=== PATIENT | female | born 1980 | race Caucasian/White ===

== ENCOUNTER 2018-03-30 17:34 | Inpatient (IN) | payer OTHER ==
[2018-03-30 17:50] VITALS: BMI 34.5
[2018-03-30] MEDS: Lactated Ringer's 1,000 ML IV SCH ×3 (18:10→20:30)
[2018-03-30 18:42] LABS: HEMOGLOBIN 11.1 g/dL (12.0-16.0); MEAN CELL VOLUME 90.4 fl (81.0-99.0); MEAN CORPUSCULAR HEMOGLOBIN 30.5 pg (27.0-31.0); MEAN CORPUSCULAR HGB CONC 33.8 g/dL (33.0-37.0); RBC 3.64 Mil/uL (3.80-5.20); RED CELL DISTRIBUTION WIDTH 14.6 % (11.5-14.5); WHITE BLOOD COUNT 10.2 K/uL (4.8-10.8)
[2018-03-30 18:45] LABS: SQUAMOUS EPITHIAL 4 /hpf (0-5); URINE BACTERIA RARE (<OCC); URINE BILIRUBIN NEGATIVE (NEGATIVE); URINE BLOOD NEGATIVE (NEGATIVE); URINE CLARITY SLIGHTY-CLOUDY (Clear); URINE COLOR YELLOW (YELLOW); URINE GLUCOSE (UA) NEG (Normal); URINE LEUKOCYTE ESTERASE NEG Leu/uL (Negative); URINE PROTEIN NEGATIVE (NEGATIVE); URINE UROBILINOGEN 0.2-1.0 mg/dL (0.2-1.0)
[2018-03-30] MEDS: Betamethasone Soluspan 30 mg/5mL Inj Susp IM SCH (18:55)
[2018-03-31] MEDS: Lactated Ringer's 1,000 ML IV SCH (05:00)
--- NOTE | 2018-03-31 08:53 | OBPN ---
Datetime: 03/31/2018 08:45 Gestation - Est Wks by US: 32+weeks IP Progress Note Comment: stable hd1,no complaintstoday,no contraction or leakage of fluid continue present care will repeat elie todayand give second dose of steroid NICHD Decel Fetus A IP Provider: Nikolay
--- NOTE | 2018-03-31 11:19 | US ---
Date of service: 03/31/2018 PROCEDURE: OB Pelvic Ultrasound HISTORY: ABISAI ONLY LMP: Difficult to read. Estimated date of delivery by LMP is offered at 05/24/2018. Estimated gestational age by LMP is 32 weeks 2 days. COMPARISON: The specific request is that of the amniotic fluid index for this exam. According to the patient she had a recent ultrasound a few days ago with the amniotic fluid index was reportedly "Low" . No prior reports or images are now available. FINDINGS: UTERUS: There is a single intrauterine gestation of approximately 32 weeks 2 days with cardiac activity noted at 153 beats per minute. The presentation is cephalic. The placenta is anterior -its relationship to the cervix is not clearly identified. Amniotic fluid index is 11.1 cm. CERVIX: closed. RIGHT OVARY: Not visualized LEFT OVARY: Visualized. FREE FLUID: None. OTHER FINDINGS: None. IMPRESSION: Single intrauterine gestation with normal cardiac activity. Cephalic presentation. Anterior placenta -as above. Approximate gestational age is 32 weeks 2 days. . The exam is limited and was specifically requested to assess for amniotic fluid index. Amniotic fluid index is 11.1 Comments: Study marked for PA review .
[2018-03-31] MEDS: Betamethasone Soluspan 30 mg/5mL Inj Susp IM SCH (18:57)
--- NOTE | 2018-04-01 10:44 | US ---
Date of service: 04/01/2018 PROCEDURE: Limited Ob ultrasound. HISTORY: LMP: 08/17/2017 COMPARISON: 03/31/2018 TECHNIQUE: Transvaginal pelvic ultrasound was performed. FINDINGS: The amniotic fluid index is 13.9 cm. Single live intrauterine fetus in cephalic presentation. Placenta is anterior. IMPRESSION: Amniotic fluid index is within normal limits and measures 13.9 cm.
[2018-04-05 17:38] VITALS: BP 106/59; PULSE 80; RESP 18; TEMP 98.4; O2SAT 96
== END 2018-04-01 12:15 | disposition home or self-care (01) | DRG 382 ==
LOC: H.L&D 17:50
PROVIDERS: ADMIT Specialist; ATTEND Specialist
PROC: 4A1HXCZ Monitoring of Products of Conception, Cardiac Rate, External Approach (ICD-10-PCS; principal; 2018-03-30)
DX: O47.1 False labor at or after 37 completed weeks of gestation (principal); Z3A.32 32 weeks gestation of pregnancy; O09.523 Supervision of elderly multigravida, third trimester

== ENCOUNTER 2018-05-22 14:03 | Inpatient (IN) | payer OTHER ==
[2018-05-22 14:38] VITALS: BMI 35.3
[2018-05-22 15:52] LABS: BASO % 0.3 % (0.0-2.0); EOS # 0.1 K/uL (0.0-0.7); EOS % 0.8 % (0.0-4.0); HEMOGLOBIN 12.8 g/dL (12.0-16.0); LYMPH # 2.1 K/uL (1.0-4.3); LYMPH % 20.3 % (20.0-40.0); MEAN CELL VOLUME 93.9 fl (81.0-99.0); MONO # 0.5 K/uL (0.0-0.8); MONO % 4.7 % (0.0-10.0); NEUT # 7.5 K/uL (1.8-7.0); NEUT % 73.9 % (50.0-75.0); NRBC % 0.1 % (0.0-0.0); RBC 4.13 Mil/uL (3.80-5.20); RED CELL DISTRIBUTION WIDTH 16.7 % (11.5-14.5); WHITE BLOOD COUNT 10.1 K/uL (4.8-10.8)
--- NOTE | 2018-05-22 16:07 | OBHP ---
Datetime: 05/22/2018 14:40 IP Adm Impression: Term, intrauterine ; No Active Labor; Intact Membranes IP Adm Impression Other: latent phase of labor IP Admit Plan: Admit to unit; Initiate labor protocol Admit Comment, IP Provider: 38yo IUP at 3w c/o CTX since 1am Q 5m No SROM; +FM; passed blood with mucous plug care: Dr Torrez - eleveted glucola (no 3h GTT) chart rev'd PMH: denies PSH: denies NKA POBGYNH: x 2 A; IUp at 39w latent phase of labor elevated glucola PLAN: contacted PMD: will admit to L_D; check Accuchecks ambulate; observe labor progress (Annotations: Data stored by CPN on behalf of user) Pelvic Type - PN: Adequate Extremities - PN: Normal Abdomen - PN: Normal Back - PN: Normal Breast - PN: Not Done Lungs - PN: Normal Heart - PN: Normal Thyroid - PN: Normal Neurologic - PN: Normal HEENT - PN: Normal General - PN: Normal Presentation-Admit: Vertex IP Fetus A Comments: sono cephalic FHR - Baseline A Provider: 130 Membranes, Provider: Intact Pool Provider: Negative IP Hx Assessment: The History has been Reviewed and is Current EGA AdmitDate IP: 39.5 IP Chief Complaint: Uterine contractions NICHD Variability Prov Fetus A: Moderate 6-25bpm NICHD Accel Fetus A IP Provider: [id number] FHR Category Provider Fetus A: Category I NICHD Decel Fetus A IP Provider: None Dilatation, Provider: 2 Effacement, Provider: 50 Station, Provider: -3 Genitourinary Exam: Normal DTRs - PN: Normal Datetime: 03/31/2018 08:45 Gestation - Est Wks by US: 32+weeks
[2018-05-22] MEDS ORDERED: Oxytocin 30 UNIT 30 UNITS/500 ML BAG IV ONE (16:57)
[2018-05-22] MEDS: Lactated Ringer's 1,000 ML IV SCH ×3 (17:15→21:10)
[2018-05-22] MEDS ORDERED: Fentanyl/Bupivacaine HCl 250 ML EPI ONE (21:43)
[2018-05-23] MEDS: Lactated Ringer's 1,000 ML IV SCH (01:00)
[2018-05-23] MEDS ORDERED: OXYTOCIN/0.9 % NS 20 UNIT/1,000 ML BAG IV ONE ×2 (01:28→04:25)
--- NOTE | 2018-05-23 04:12 | OBADHP ---
Datetime: 05/22/2018 14:40 IP Adm Impression Other: latent phase of labor Admit Comment, IP Provider: 38yo IUP at 3w c/o CTX since 1am Q 5m No SROM; +FM; passed blood with mucous plug care: Dr Torrez - eleveted glucola (no 3h GTT) chart rev'd PMH: denies PSH: denies NKA POBGYNH: x 2 A; IUp at 39w latent phase of labor elevated glucola PLAN: contacted PMD: will admit to L_D; check Accuchecks ambulate; observe labor progress (Annotations: Data stored by CPN on behalf of user) Pelvic Type - PN: Adequate Extremities - PN: Normal Abdomen - PN: Normal Back - PN: Normal Breast - PN: Not Done Lungs - PN: Normal Heart - PN: Normal Thyroid - PN: Normal Neurologic - PN: Normal HEENT - PN: Normal General - PN: Normal Presentation-Admit: Vertex IP Fetus A Comments: sono cephalic FHR - Baseline A Provider: 130 Membranes, Provider: Intact Gestation - Est Wks by US: 39+ Pool Provider: Negative IP Hx Assessment: The History has been Reviewed and is Current Vital Signs Provider: Reviewed; Within Normal Limits IP Chief Complaint: Uterine contractions NICHD Variability Prov Fetus A: Moderate 6-25bpm NICHD Accel Fetus A IP Provider: [id number] FHR Category Provider Fetus A: Category I NICHD Decel Fetus A IP Provider: None Dilatation, Provider: 2 Effacement, Provider: 50 Station, Provider: -3 Genitourinary Exam: Normal DTRs - PN: Normal EGA AdmitDate IP: 39.5 IP Adm Impression: Term, intrauterine ; No Active Labor; Intact Membranes IP Admit Plan: Admit to unit; Initiate labor protocol
--- NOTE | 2018-05-23 04:19 | OBDS ---
DELIVERY PERSONNEL Delivery Doctor: Josefina Espinal MD Rug Hooker: Riana Chi RN Anesthesiologist: Fay Catalan MD MATERNAL INFORMATION Delivery Anesthesia: Epidural Medications in Delivery: Oxytocin Estimated Blood Loss (ml): 100 Placenta Cultured: No Maternal Complications: None LABOR SUMMARY EDC: 05/24/2018 00:00 No. Babies in Womb: 1 Attempted: No Labor Anesthesia: Epidural LABOR INFORMATION Reason for Induction: Not Applicable Onset of Labor: 05/22/2018 13:00 Complete Dilatation: 05/23/2018 03:36 Oxytocin: Augmentation Group B Beta Strep: Negative Steroids Given: None Reason Steroids Not Administered: Not Applicable MEMBRANES Membranes Rupture Method: Artificial Rupture of Membranes: 05/23/2018 01:41 Length of Rupture (hrs): 3.25 Amniotic Fluid Color: Bloody Amniotic Fluid Amount: Scant Amniotic Fluid Odor: Normal STAGES OF LABOR Stage 1 hrs: 15 Stage 1 min: 36 Stage 2 hrs: 0 Stage 2 min: 20 VAGINAL DELIVERY Episiotomy: None Laceration Extension: N/A Laceration Type: None Laceration Repair: Not Applicable Laceration Repair Note: none Initial Vag Sponge Count: 5 Final Vag Sponge Count: 5 Initial Vag Sharps Count: 0 Final Vag Sharps Count: 0 Sponge Count Correct: Yes Sharps Count Correct: N/A BABY A INFORMATION Delivery Date/Time: 05/23/2018 03:56 SHOULDER DYSTOCIA BABY A Infant Delivery Date/Time: 05/23/2018 03:56 IDENTIFICATION/MEDS BABY A ID Band Number: [id number] ID Band Location: Left Leg; Left Arm
[2018-05-23] MEDS ORDERED: Acetaminophen-Codeine 300/30 mg Tab PO PRN (04:25)
[2018-05-23] MEDS ORDERED: Benzocaine/Menthol SPRAY TOP PRN (04:25)
[2018-05-23] MEDS ORDERED: Oxycodone/Acetaminophen 5/325 mg Tab PO PRN ×2 (04:25)
[2018-05-24] MEDS ORDERED: Benzocaine/Menthol SPRAY TOP PRN (00:13)
[2018-05-24] MEDS ORDERED: Acetaminophen-Codeine 300/30 mg Tab PO PRN (00:13)
[2018-05-24] MEDS ORDERED: Oxycodone/Acetaminophen 5/325 mg Tab PO PRN ×2 (00:13)
[2018-05-24] MEDS ORDERED: Lansinoh for Breast Feeding Mothers TP ONE (00:44)
[2018-05-24 06:50] LABS: BASO % 0.4 % (0.0-2.0); EOS # 0.1 K/uL (0.0-0.7); EOS % 1.4 % (0.0-4.0); LYMPH # 2.4 K/uL (1.0-4.3); LYMPH % 30.4 % (20.0-40.0); MEAN CELL VOLUME 93.5 fl (81.0-99.0); MEAN CORPUSCULAR HEMOGLOBIN 30.8 pg (27.0-31.0); MEAN PLATELET VOLUME 9.5 fl (7.2-11.7); MONO # 0.5 K/uL (0.0-0.8); MONO % 5.6 % (0.0-10.0); NEUT % 62.2 % (50.0-75.0); RBC 3.9 Mil/uL (3.80-5.20); RED CELL DISTRIBUTION WIDTH 17.3 % (11.5-14.5); WHITE BLOOD COUNT 8.1 K/uL (4.8-10.8)
[2018-05-24] MEDS ORDERED: Influenza Vaccine 60 MCG/0.5 ML SYR (3 yr & up) IM ONE (08:18)
--- NOTE | 2018-05-24 16:54 | OBPPN ---
Datetime: 05/24/2018 16:48 PP Pain Prov: Within normal limits PP Nausea Prov: Denies PP Flatus Prov: Yes PP BM Prov: No PP Breasts Prov: Normal PP Heart Prov: Normal PP Lungs Prov: Normal PP Abdomen/Uterus Prov: Normal PP Lochia Prov: Normal PP Vulva/Perineum Prov: Normal PP CVA Tenderness Prov: Normal PP Extremities Prov: Normal PP Progress Prov: Normal PP Impression Prov: Normal progression PP Plan Prov: Continue present management PP Progress Note Prov: stable ppd1 no complaints continue present care IP PP Procedures: None Vital Signs Provider PP: Reviewed; Within Normal Limits
[2018-05-25 08:42] VITALS: BP 149/80; PULSE 92; RESP 18; TEMP 98.3
--- NOTE | 2018-05-25 09:18 | OBPPN ---
Datetime: 05/25/2018 09:16 PP Pain Prov: Within normal limits PP Nausea Prov: Denies PP Flatus Prov: Yes PP BM Prov: Yes PP Breasts Prov: Normal PP Heart Prov: Normal PP Lungs Prov: Normal PP Abdomen/Uterus Prov: Normal PP Lochia Prov: Normal PP Vulva/Perineum Prov: Normal PP CVA Tenderness Prov: Normal PP Extremities Prov: Normal PP Progress Prov: Normal PP Impression Prov: Normal progression PP Plan Prov: Continue present management PP Progress Note Prov: stable ppd2 continue present care IP PP Procedures: None Vital Signs Provider PP: Reviewed; Within Normal Limits
--- NOTE | 2018-05-25 12:02 | OBDCSUM ---
Datetime: 05/25/2018 09:18 Discharged to, Provider: Home Follow up at, Provider: Dr Ocampo Disch Instr Activity: Normal activity; May Shower Disch Instr Diet: Restricted, specify Discharge Instructions, Provider: Routine instructions given Discharge Diagnosis, Provider: Term Delivered Follow up in weeks, Provider: 5-6 weeks in office Disch Referrals: None Disch Activity Restrictions: No exercising; No lifting; No driving; Minimize walking; Minimize stair -climbing; No sexual activity; Nothing in vagina - [place], tampons, douche Discharge Comment, Provider: gamal home today rto 5-6 weeks call office if any problems Contraception after Delivery: Undecided
[2018-05-25 18:15] VITALS: O2SAT 100
== END 2018-05-25 13:55 | disposition home or self-care (01) | DRG 560 ==
LOC: H.EROB2 14:03 → H.L&D 14:55 → H.OB/GYN 05-23 09:50
PROVIDERS: ADMIT Specialist; ATTEND Specialist
PROC: 4A1HXCZ Monitoring of Products of Conception, Cardiac Rate, External Approach (ICD-10-PCS; 2018-05-22)
PROC: 10E0XZZ Delivery of Products of Conception, External Approach (ICD-10-PCS; principal; 2018-05-23)
PROC: 10907ZC Drainage of Amniotic Fluid, Therapeutic from Products of Conception, Via Natural or Artificial Opening (ICD-10-PCS; 2018-05-23)
PROC: 3E02340 Introduction of Influenza Vaccine into Muscle, Percutaneous Approach (ICD-10-PCS; 2018-05-24)
DX: O75.89 Other specified complications of labor and delivery (principal); Z37.0 Single live birth; Z3A.39 39 weeks gestation of pregnancy; O09.523 Supervision of elderly multigravida, third trimester; Z23 Encounter for immunization

== ENCOUNTER 2018-08-06 08:20 | Day surgery (SDC) | payer OTHER ==
[2018-08-04 16:32] VITALS: BMI 31.7
[2018-08-06 08:39] VITALS: RESP 18
[2018-08-06] MEDS ORDERED: Lactated Ringer's 1,000 ML IV ONE ×2 (08:46→11:15)
[2018-08-06] MEDS ORDERED: Propofol 10 mg/ml Inj (20 ML) ONE (10:35)
[2018-08-06] MEDS ORDERED: ePHEDrine 50 mg/ml Inj ONE (10:35)
[2018-08-06] MEDS ORDERED: Succinylcholine Chloride 20 mg/ml Syr (5 ml) IV ONE (10:35)
[2018-08-06] MEDS ORDERED: Midazolam 2 MG/2 ML VIAL ONE (10:35)
[2018-08-06] MEDS ORDERED: Lidocaine 4% (Laryng-O-Jet) Kit MM ONE (10:35)
[2018-08-06] MEDS ORDERED: Rocuronium 10 mg/ml (5 ml) ONE (10:38)
[2018-08-06] MEDS ORDERED: Dexamethasone 4 mg/1 ml ONE (11:19)
[2018-08-06] MEDS ORDERED: Neostigmine 1:1000 (1 mg/ml) Inj ONE (12:14)
[2018-08-06] MEDS ORDERED: HYDROmorphone 0.5 mg/0.5 ml ISec IVP PRN (12:35)
[2018-08-06] MEDS ORDERED: Lactated Ringer's 1,000 ML IV SCH (12:45)
[2018-08-06 15:22] VITALS: BP 116/69; PULSE 81; TEMP 97.4; O2SAT 99
--- NOTE | 2018-08-08 05:10 | OP ---
PROCEDURE DATE: 08/06/2018 PREOPERATIVE DIAGNOSIS: Multiparity. POSTOPERATIVE DIAGNOSIS: Multiparity. SURGEON: Dominic Espinal MD records management assistant ANESTHESIOLOGIST: Afia Leonard MD ANESTHESIA: General anesthesia. DESCRIPTION OF PROCEDURE: With the patient in the dorsal lithotomy position under general anesthesia, the patient was prepped and draped in the usual sterile manner. The cervix was grasped and dilated with a graded dilator, after which the HUMI uterine manipulator put into place. I then moved to the abdomen where a small incision was made below the umbilicus and abdomen was inflated to about 4 L of CO2. Following this, a second trocar was placed #5 and the tubes and ovaries were visualized. Both tubes were ligated bilaterally with fulguration of the tubes to almost complete extent. After this was done, hemostasis was maintained, the instruments were removed from the abdomen and the incisions were closed with 2-0 Vicryl and with Dermabond. The instruments were then removed from the vagina. Blood loss was minimal. The patient tolerated the procedure well and was in satisfactory condition on her way to the recovery room. Dominic Espinal MD MTDMaurisio
== END 2018-08-06 15:51 | disposition home or self-care (01) ==
LOC: H.OPSURG 08:20
PROVIDERS: ATTEND Specialist
DX: Z64.1 Problems related to multiparity (principal)
CPT/HCPCS: 58558; J1100; J1170; J2001; J2250; J2405; J2704; J2710; J3010; J7120